=== PATIENT | male | born 1970 | race Caucasian/White ===

== ENCOUNTER 2016-12-14 00:39 | Emergency (ER) | payer OTHER ==
[~2016-12-14 00:39] MED LIST: ALDACTONE25 MG PO; ASPIRIN PO; BUMEX2 MG PO; COMBIVENT U/D3 M1 INH; FLOMAX0.4 M1 PO; FOLIC ACID1 MG PO; KLOR-CON PO; KRISTALOSE20 G/PK1 PO; LIBRIUM PO; LIBRIUM25 MG PO; LOTREL 10/20 MG1 CAP PO; MAGNESIUM400 MG PO; MULTI-VITAMIN1 EAC1 PO; NEXIUM PO; PERCOCET5/325 PO; PRILOSEC PO; THIAMINE HCL100 M1 PO; ZINC SULFATE220 M1 PO; ZITHROMAX PO
== END 2016-12-14 01:20 | disposition left against medical advice (07) ==
LOC: SED 00:39
DX: F10.129 Alcohol abuse with intoxication, unspecified (principal); Y90.9 Presence of alcohol in blood, level not specified
CPT/HCPCS: 99284

== ENCOUNTER 2016-12-18 03:11 | Emergency (ER) | payer OTHER ==
[~2016-12-18] VITALS: Ht 167.6 cm; Wt 65.8 kg
== END 2016-12-18 12:23 | disposition home or self-care (01) ==
LOC: SED 03:11
DX: F10.129 Alcohol abuse with intoxication, unspecified (principal); F17.200 Nicotine dependence, unspecified, uncomplicated
CPT/HCPCS: 96372; 99284; J3486